=== PATIENT | female | born 2005 | race Caucasian/White ===

== ENCOUNTER 2024-03-01 12:13 | Outpatient (AMB) | payer BC, SELFPAY ==
--- NOTE | 2024-03-01 12:44 | MHC.OFFWIV ---
Intake Vital Signs 03/01/24 12:53 Height 5 ft 10 in Weight 200 lb BMI 28.7 BP 122/80 Blood Pressure Location Rt brachial Position Sitting Pulse 97 Pulse Source Pulse Oximeter Temp 99.4 F Temp Source Oral Pulse Oximetry (%) 97 Intake Visit Reasons: left ear ache, coughing Patient Tobacco Use Status: Never used Tobacco Allergies penicillin G Allergy (Mild, Verified 03/01/24 12:53) Rash Do you need a note to return to daycare/school/sports/work: Yes HPI left ear ache, coughing HPI Details This note is constructed using voice recognition software. While every effort has been made to ensure accuracy, social media senior associate errors may have been included. The patient is a 19 year old female who presents to the clinic today with left earache for the past 2 days, cough for the past week. She denies fever, chills, shortness of breath. She does report that her hearing has been reduced, as the left ear feels completely blocked. PFSH Social History Patient Tobacco Use Status: Never used Tobacco Review of Systems Const All systems reviewed & are unremarkable except as noted in HPI and below Physical Exam Vital Signs: Last Vital Signs Temp 99.4 F 03/01/24 12:53 Pulse 97 03/01/24 12:53 BP 122/80 03/01/24 12:53 Pulse Ox 97 03/01/24 12:53 BMI result Body Mass Index 28.7 Const General: cooperative, healthy appearing, comfortable and no acute distress Orientation/consciousness: patient oriented x3 HEENT Head: Yes normal to inspection and Yes normocephalic Ears: EAC's normal, mastoids normal and unable to visualize TM (cerumen impaction) on the left General nose exam: Normal external nose present Face and sinus: Yes normal facial exam Resp Effort & Inspection: normal respiratory effort and able to speak in complete sentences Neuro General: patient oriented x3 Office Procedures Cerumen Removal From which ear canal was the cerumen removed: left Removal: irrigation Notes: no complications [id number] Irrigation/Lavage Assessment & Plan Assessment & Plan (1) Cerumen impaction: Code(s): H61.20 - Impacted cerumen, unspecified ear Qualifiers: Laterality: left Qualified Code(s): H61.22 - Impacted cerumen, left ear Plan: In office irrigation unsuccessful due to patient's report of pain in canal. On re-exam there is a small abrasion to the canal. Advised patient to use Debrox or other generic cerumen softening product for generalized maintenance. Advised avoidance of sticking items into the ear. Advised follow up as needed with worsening symptoms. Plan See above for full details and plan. Coding Level of Care Code New Pt Level 4 (96763) Diagnoses Impacted cerumen of left ear H61.22 Laterality: left CPT Codes Office Procedure - CPT: 82515-Kqh Irrigation/Lavage ([id number])
[2024-03-01 12:53] VITALS: BP 122/80; PULSE 97; TEMP 37.4; O2SAT 97; BMI 28.7
== END 2024-03-01 14:06 | disposition home or self-care (01) ==
PROVIDERS: Visit Provider Registered Nurse
DX: H92.02 Otalgia, left ear (principal); H61.22 Impacted cerumen, left ear

== ENCOUNTER → 2024-03-01 12:13 | Outpatient (BNVA) | payer BC, SELFPAY | PROVIDERS: Visit Provider Registered Nurse | DX: H61.22 Impacted cerumen, left ear (principal) | CPT/HCPCS: 69209 ==

== ENCOUNTER 2024-03-03 19:58 | Emergency (ER) | payer BC, SELFPAY ==
--- NOTE | ~2024-03-03 | XR_ITS ---
EXAMINATION: XR CHEST CLINICAL INFORMATION: 1 week of cough. COMPARISON: None available. TECHNIQUE: 2 views of the chest were obtained. FINDINGS: No significant abnormality is noted involving the heart, lungs, mediastinum, bony thorax or soft tissues. XR/XR chest 2V IMPRESSION: Unremarkable examination. Electronically signed by: Juan Pablo Alvarado MD 03/04/2024 12:01 AM [facility]
[2024-03-03 20:02] VITALS: BP 142/92; PULSE 104; RESP 16; TEMP 36.2; O2SAT 99; BMI 30.7
--- NOTE | 2024-03-03 20:04 | ED_ITS ---
HPI - General Adult General Chief complaint: Upper Respiratory Symptoms Stated complaint: URI/ear pain Time Seen by Provider: 03/04/24 04:02 Source: patient and old records reviewed Mode of arrival: ambulatory Limitations: no limitations History of Present Illness ED Provider: NIYAH HPI narrative: 19 yo female with no sig PMH here with runny nose, low grade subjective fevers, L ear pain and cough - no travel, no sick contacts. UC saw patient yesterday same complaint. She notes she is using ear drops but no relief. Partner is not sick. MD complaint: URI Onset (ago): day(s) (3) Radiation: non-radiation Severity: moderate Quality: aching Pain Consistency: intermittent Relieving factors: none Exacerbating factors: movement and other (swallowing) Associated symptoms: cough, fever/chills and loss of appetite Treatments prior to arrival: none Related Data Previous Rx's ?Medication ?Instructions ?Recorded cefuroxime axetil 500 mg tablet 500 mg PO BID 7 days #14 tabs 03/04/24 Allergies Allergy/AdvReac Type Severity Reaction Status Date / Time penicillin G Allergy Mild Rash Verified 03/03/24 20:04 Review of Systems Review of Systems: Constitutional : pos Fever, pos Chills ENT/Mouth : No Hoarseness, pos sore throat, pos Rhinorrhea Eyes: No Redness, No Discharge, No Vision Changes Cardiovascular : No Chest Pain, no SOB Respiratory : positive Cough, No Sputum,no Wheezing, Gastrointestinal : No Nausea, No Vomiting, No Diarrhea, No abdominal Pain Genitourinary : No Dysuria, No Hematuria Musculoskeletal : No joint pain, No Myalgias Skin : No rash Neuro : No Weakness, No Numbness, No Headache Psych : No anxiety, depression All other systems reviewed and are negative [facility] Past Medical History Attestation statement: The following information was validated with the patient. Source: old records reviewed Medical History No pertinent past medical history Social History Social History Patient Tobacco Use Status: Never used Tobacco Smoked in Last 30 Days: No Advance Directives: No Advance Directives Information Provided: Yes Do you have a plan to hurt others: No Plan Patient : No Physical Exam ED Vital Signs: Vital Signs - 24 hr 03/03/24 20:02 03/04/24 02:38 03/04/24 02:39 Temperature 97.2 F 97.2 F Pulse Rate 104 H 77 Respiratory Rate 16 16 Blood Pressure 142/92 H 153/84 H Pulse Oximetry 99 99 99 Oxygen Delivery Method Room Air Room Air Room Air BMI result Body Mass Index 30.7 Appearance: Alert. Oriented X3. No acute distress. Eyes: Pupils equal, round and reactive to light. ENT: Pharynx normal. L TM red effusion noted no perforation - normal ROM and no mastoid ttp Neck: Normal inspection. Neck supple. CVS: Normal heart rate and rhythm. Pulses normal. Respiratory: No respiratory distress. Breath sounds normal. Abdomen: Soft and nontender. Skin: Skin warm and dry. Normal skin color. Extremities: No lower extremity edema. Neuro: Oriented X 3. No motor deficit. No sensory deficit. Course Course Course Narrative: This is a Rapid Medical Examination (RME) performed by Cristina Aj PA-C in triage. Full HPI, ROS, assessment and treatment plan per primary provider in the Main ED. 19 yo female here for eval of productive cough, SOB, clogged left ear, intermittent low grade fevers x1 week. seen at , was not discharged w/ any medications. states she was not tested for any viral illnesses. Plan: viral swabs, CXR Medical Decision Making Medical Decision Making [facility] Narrative: 19 yo female with no sig PMH here with c/o URI symptoms the patient is not toxic well hydrated no resp distress - will obtain viral panel, CXR for pneumonia and treat L AOM with ceftin - patient aware and agrees Differential Diagnosis Differential Diagnoses: The differential diagnosis associated with the presentation includes URI, AOM Admission/Observation Consideration of admission/observation: Escalation of care including admission/observation considered not toxic, well hydrated stble for DC Lab Data [facility] Lab Attestation statement: I reviewed the patient's lab results. Labs: Lab Results 03/03/24 Range/Units 20:27 Influenza Type A (PCR) NEGATIVE (Negative) Influenza Type B (PCR) NEGATIVE (Negative) RSV RNA Qual (PCR) NEGATIVE (Negative) SARS-CoV-2 RNA (RT-PCR) NEGATIVE (Negative) Independent Interpretation I performed an independent interpretation of an: Plain X-Ray (normal) Radiology Impression Discussion of test interpretation with radiology: I have reviewed the radiologist's reading. Prescription Management I considered prescription management with: Antibiotic Discharge Plan Discharge Clinical Impression: Upper respiratory infection Qualifiers: URI type: unspecified URI Qualified Code(s): J06.9 - Acute upper respiratory infection, unspecified Otitis media Qualifiers: Otitis media type: suppurative Chronicity: acute Laterality: left Recurrence: non-recurrent Spontaneous tympanic membrane rupture: without spontaneous rupture Qualified Code(s): H66.002 - Acute suppurative otitis media without spontaneous rupture of ear drum, left ear Patient Disposition: Home, Self-Care Instructions: Ear Infection (ED), Upper Respiratory Infection (ED) Additional Instructions: return for worsening symptoms, unable to breathe, vomiting or any other concerns On a cephalosporin?antibiotic, softer bowel movements are to be expected. Call your provider if you move your bowels more than 4 times a day, your bowel movements are almost all liquid, or you get a rash.?? Prescriptions: New cefuroxime axetil 500 mg tablet 500 mg PO BID 7 Days Qty: 14 0RF Stand Alone Forms: Work/School Release Print Language: Japanese
[2024-03-03 21:21] LABS: Influenza A PCR NEGATIVE (Negative); Influenza B PCR NEGATIVE (Negative); Resp Syncy Virus RNA Qual PCR NEGATIVE (Negative); SARS COV2 PCR INHOUSE NEGATIVE (Negative)
[2024-03-04 02:38] VITALS: BP 153/84; PULSE 77; RESP 16; TEMP 36.2; O2SAT 99
[2024-03-04 02:39] VITALS: O2SAT 99
--- NOTE | 2024-03-04 02:40 | PC.NURSE ---
Pt brought to [facility] for treatment, assumed care of pt at this time. A&Ox3 skin pwd respirations even unlabored, VSS. Awaiting provider eval, aware of plan of care.
--- NOTE | 2024-03-04 05:12 | PC.NURSE ---
Provider to bedside for primary eval.
[2024-03-04 05:47] VITALS: BP 153/84; PULSE 77; RESP 16; TEMP 36.2; O2SAT 99
== END 2024-03-04 05:48 | disposition home or self-care (01) ==
PROVIDERS: Physician Assistant Medical; Emergency Provider Emergency Medicine
DX: H66.002 Acute suppurative otitis media without spontaneous rupture of ear drum, left ear (principal); J06.9 Acute upper respiratory infection, unspecified; Z03.818 Encounter for observation for suspected exposure to other biological agents ruled out
CPT/HCPCS: 0241U; 71046; 99283; 99284

== ENCOUNTER 2024-05-03 15:23 | Outpatient (AMB) | payer BC, SELFPAY ==
--- NOTE | 2024-05-03 15:35 | MHC.OFFWIV ---
Intake Vital Signs 05/03/24 15:37 Weight 221 lb BP 120/80 Blood Pressure Location Rt brachial Position Sitting Pulse 130 H Pulse Source Pulse Oximeter Temp 98.7 F Temp Source Oral Pulse Oximetry (%) 98 Oxygen Delivery Method Room Air Intake Visit Reasons: EP vomiting, can't keep anything down Intake Note: Patient here for vomiting that started today and is unable to keep liquids or food down. Denies chance of Patient Tobacco Use Status: Never used Tobacco Allergies penicillin G Allergy (Mild, Verified 05/03/24 15:37) Rash Do you need a note to return to daycare/school/sports/work: Yes [facility] Medical History No pertinent past medical history Social History Patient Tobacco Use Status: Never used Tobacco Physical Exam Vital Signs: Last Vital Signs Temp 98.7 F 05/03/24 15:37 Pulse 130 H 05/03/24 15:37 BP 120/80 05/03/24 15:37 Pulse Ox 98 05/03/24 15:37 Oxygen Delivery Method Room Air 05/03/24 15:37 Assessment & Plan Assessment & Plan (1) Diarrhea: Code(s): R19.7 - Diarrhea, unspecified Plan: History of Present Illness The patient is a 19-year-old female presenting with nausea and vomiting. She reports the onset of symptoms this morning, characterized by sudden vomiting. The patient denies any similar previous episodes and any possibility of . There are no accompanying symptoms of diarrhea mentioned. She has not taken any regular medications and denies any chronic medical issues. The symptoms have persisted throughout the day, and she seeks relief from nausea. 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 - Present with her boyfriend. Review of Systems - Gastrointestinal: Reports nausea and vomiting. Denies diarrhea. Physical Exam General: Cooperative and healthy appearing Nutritional Appearance: Well nourished Orientation/consciousness: Patient oriented x3 Limitations: No limitations Head: Normal to inspection General: Appearance normal, both eyes and all related structures Neck: Normal visual inspection Chest: Normal palpation of entire chest wall Respiratory: Normal respiratory effort Neurology: Patient oriented x3 Results Plan - Provision of an antiemetic medication to address nausea. - Advice on hydration strategies using small sips through a straw. - Provision of a work note for absence due to illness for today and the following day. Patient was informed and verbally consented to the use of an ambient scribe for clinic note documentation during this visit. Discussion Notes I discussed with the patient the likely diagnosis of an acute viral gastroenteritis, which is a viral infection causing nausea and vomiting. I explained the management plan, which includes antiemetic medication to manage symptoms of nausea. We discussed the importance of maintaining hydration by drinking small amounts of fluid slowly. I provided a note for work to excuse her absence due to illness. No alternative diagnosis was suspected at this time given the suddenness of the symptom onset and the lack of other systemic symptoms. Patient Instructions - Take prescribed medication to help with nausea. - Drink fluids slowly using a straw to maintain hydration. - Rest and avoid vigorous activities until symptoms improve. - Use the provided work note to excuse absence as needed. Coding Level of Care Code Est Pt Level 3 (70911) Diagnoses Diarrhea R19.7
[2024-05-03 15:37] VITALS: BP 120/80; PULSE 130; TEMP 37.1; O2SAT 98
== END 2024-05-03 16:08 | disposition home or self-care (01) ==
PROVIDERS: Visit Provider Internal Medicine
DX: R19.7 Diarrhea, unspecified (principal)